=== PATIENT | female | born 1950 | race Caucasian/White ===

== ENCOUNTER 2017-09-06 06:45 | Inpatient (IN) | payer MEDICARE, OTHER ==
[~2017-09-06] VITALS: Ht 162.6 cm; Wt 81.7 kg
--- OUTSIDE RECORDS SUMMARY | ~2017-09-06 | XMS | Clinical Summary ---
Demographics + + + | Address | [address] | | | [place] [address] | + + + | Home Phone | | + + + | Preferred Language | Unknown | + + + | Marital Status | | + + + | Judaism Affiliation | SPI | + + + | Race | White | + + + | Ethnic Group | Not or | + + + Author + + + | Author | [facility] | + + + | Organization | [facility] | + + + | Address | Unknown | + + + | Phone | Unavailable | + + + Support + + + + + | Name | Relationship | Address | Phone | + + + + + | TRAM STANTON | ECON | [place] | | + + + + + | Kristy Ford | ECON | Unknown | | + + + + + Care Team Providers + +------+ + | Care Typesetter Perforator Operator Name | Role | Phone | + +------+ + PP | Unavailable | + +------+ + Source Comments JEREMYSCOTT is fully live on both EpicCare Ambulatory and EpicCare InPatient.[facility] Allergies + + + + + + | Active Allergy | Reactions | Severity | Noted | Comments | | | | | Date | | + + + + + + | Aspirin | Nausea | | 06/07/20 | | | | | | 11 | | + + + + + + | Ciprofloxacin | Rash, Edema | | 05/19/20 | | | | | | 11 | | + + + + + + | Codeine | Pruritus, Nausea and | | 05/19/20 | | | | Vomiting | | 11 | | + + + + + + | Meperidine (Pf) | Pruritus, Nausea and | | 05/19/20 | | | | Vomiting | | 11 | | + + + + + + | Doxycycline | Nausea, Nausea and | | 05/19/20 | | | | Vomiting | | 11 | | + + + + + + | Erythromycin | Nausea and Vomiting | | 05/19/20 | | | | | | 11 | | + + + + + + | Cephalexin | Rash | | 05/19/20 | | | | | | 11 | | + + + + + + | Penicillins | Rash | | 05/19/20 | | | | | | 11 | | + + + + + + | Sulfamethoxazole-Tri | Rash, Edema | | 05/19/20 | | | methoprim | | | 11 | | + + + + + + Current Medications + + + +---------+------+------+-------+ | Prescription | Sig. | Disp. | Refills | Star | End | Statu | | | | | | t | Date | s | | | | | | Date | | | + + + +---------+------+------+-------+ | mometasone | Instill 2 Sprays | | | | | Activ | | (NASONEX) 50 | into each nostril | | | | | e | | mcg/Actuation Nasal | once daily. | | | | | | | [place], Non-Aerosol | | | | | | | + + + +---------+------+------+-------+ | lisinopril 20 mg | Take 1 Dose(s) by | | | | | Activ | | Tab 20 mg, | mouth once daily. | | | | | e | | hydrochlorothiazide | | | | | | | | 25 mg Tab 25 mg | | | | | | | + + + +---------+------+------+-------+ | Nitrofurantoin 50 | Take 100 mg by mouth | | | | | Activ | | mg Oral Capsule | as needed. | | | | | e | + + + +---------+------+------+-------+ | omeprazole 40 mg | Take 40 mg by mouth | | | | | Activ | | Oral Capsule, | once daily. | | | | | e | | Delayed | | | | | | | | Release(E.C.) | | | | | | | + + + +---------+------+------+-------+ | CALCIUM CARBONATE | Take 1,200 Units by | | | | | Activ | | (CALCIUM 600 ORAL) | mouth. | | | | | e | + + + +---------+------+------+-------+ | Cholecalciferol, | Take 5,000 Units by | | | | | Activ | | Vitamin D3, (VITAMIN | mouth every seven | | | | | e | | D) 5,000 unit Oral | days. | | | | | | | Tablet | | | | | | | + + + +---------+------+------+-------+ | omega | Take 3,000 mg by | | | | | Activ | | 8-deq-lzr-fish oil | mouth two times | | | | | e | | (OMEGA 3 FISH OIL) | daily. | | | | | | | 900-1,400 mg Oral | | | | | | | | Capsule, Delayed | | | | | | | | Release(E.C.) | | | | | | | + + + +---------+------+------+-------+ | | Take by mouth. | | | | | Activ | | MULTIVITS-MIN/FA/ | | | | | | e | | TARY NO 19 (MULTIVIT | | | | | | | | & MIN-FA-DIET COMB | | | | | | | | 19 ORAL) | | | | | | | + + + +---------+------+------+-------+ | atorvastatin 40 mg | Take 1 Tab by mouth | 30 Tab | 3 | 12/0 | | Activ | | Oral Tablet | once daily. | | | 2/20 | | e | | | | | | 11 | | | + + + +---------+------+------+-------+ | metoprolol | Take 100 mg by mouth | | | | | Activ | | tartrate 100 mg Oral | two times daily. | | | | | e | | tablet | | | | | | | + + + +---------+------+------+-------+ Active Problems + + + | Problem | Noted Date | + + + | Chest pain | 05/19/2011 | + + + Family History + + +------+ + | Medical History | Relation | Name | Comments | + + +------+ + | Heart Disease | Father | | | + + +------+ + + +------+--------+ + | Relation | Name | Status | Comments | + +------+--------+ + | Father | | (Age | kidney failure | | | | 84) | | + +------+--------+ + Social History + +-------+ +--------+------+ | Tobacco Use | Types | Packs/Day | Years | Date | | | | | Used | | + +-------+ +--------+------+ | Never Smoker | | | | | + +-------+ +--------+------+ + +---+---+---+ | Smokeless Tobacco: | | | | | Never Used | | | | + +---+---+---+ + + +---------+ + | Alcohol Use | Drinks/We | oz/Week | Comments | | | ek | | | + + +---------+ + | No | | | quit drinking socially (2 times a year) two | | | | | years ago | + + +---------+ + + + + | Sex Assigned at | Date Recorded | | | | + + + | Not on file | | + + + Last Filed Vital Signs + + + + | Vital Sign | Reading | Time Taken | + + + + | Blood Pressure | 137/76 | 04/08/2012 8:48 AM PDT | + + + + | Pulse | 85 | 04/08/2012 8:48 AM PDT | + + + + | Temperature | 36.8 C (98.2 F) | 04/08/2012 7:18 AM PDT | + + + + | Respiratory Rate | 18 | 04/08/2012 8:48 AM PDT | + + + + | Oxygen Saturation | 97% | 04/08/2012 8:48 AM PDT | + + + + | Inhaled Oxygen | - | - | | Concentration | | | + + + + | Weight | 82.6 kg (182 lb) | 04/07/2012 1:46 PM PDT | + + + + | Height | 160 cm (5' 3") | 04/04/2012 10:22 AM PDT | + + + + | Body Mass Index | 32.24 | 04/07/2012 1:46 PM PDT | + + + + Plan of Treatment + + + + + | Health Maintenance | Due Date | Last Done | Comments | + + + + + | INFLUENZA VACCINE | | | | | (FLU SHOT) | 7 | | | + + + + + Results Not on filefrom Last 3 Months
--- OUTSIDE RECORDS SUMMARY | ~2017-09-06 | XMS ---
Demographics + + + | Address | [address] | | | [place] [address] | + + + | Preferred Language | Unknown | + + + | Marital Status | Unknown | + + + | Protestant Affiliation | Unknown | + + + | Race | Unknown | + + + | Ethnic Group | Unknown | + + + Author + + + | Author | [facility] | + + + | Organization | [facility] | + + + | Address | [address] | | | [place] [address] | + + + | Phone | | + + + Care Team Providers + + + + | Care Fisher Eel Spear Name | Role | Phone | + + + + Unavailable | Unavailable | + + + + PROBLEMS + + + + + + + + | Type | Condition | ICD9-CM | [id number] | Onset | Condition | SNOMED | | | | Code | Code | Dates | Status | Code | + + + + + + + + | Problem | Current | Z79.52 | | | Active | [id number] | | | use of | | | | | [address]5064 | | | steroid | | | | | | | | medication | | | | | | + + + + + + + + | Problem | Low | E55.9 | | | Active | 93351654 | | | vitamin D | | | | | | | | level | | | | | | + + + + + + + + | Problem | Osteopenia | | M85.80 | | Active | 78724468 | + + + + + + + + | Problem | DJD | M50.30 | | | Active | 58729211 | | | (degenerat | | | | | | | | caitlyn joint | | | | | | | | disease), | | | | | | | | cervical | | | | | | + + + + + + + + | Problem | GERD | | K21.9 | | Active | 871686417 | | | (gastroeso | | | | | | | | phageal | | | | | | | | reflux | | | | | | | | disease) | | | | | | + + + + + + + + | Problem | Lightheade | R42 | | | Active | 841974043 | | | d | | | | | | + + + + + + + + | Problem | Hiatal | | K44.9 | | Active | 53787510 | | | hernia | | | | | | + + + + + + + + | Assessment | Low | E55.9 | | 08 November, | Active | 26845917 | | | vitamin D | | | 2017 | | | | | level | | | | | | + + + + + + + + | Problem | Anxiety | | F41.9 | | Active | 508963493 | | | disorder, | | | | | | | | unspecifie | | | | | | | | d | | | | | | + + + + + + + + | Problem | Anxiety | 300.09 | | | Active | 968550923 | | | about | | | | | | | | health | | | | | | + + + + + + + + | Problem | PAF | I48.0 | | | Active | 36846558 | | | (paroxysma | | | | | | | | l atrial | | | | | | | | fibrillati | | | | | | | | on) | | | | | | + + + + + + + + | Problem | Hypokalemi | | E87.6 | | Active | 84989660 | | | a | | | | | | + + + + + + + + | Problem | ASCVD | I25.10 | | | Active | 63382110 | | | (arteriosc | | | | | | | | lerotic | | | | | | | | cardiovasc | | | | | | | | ular | | | | | | | | disease) | | | | | | + + + + + + + + | Problem | Hypothyroi | | E03.9 | | Active | 41388272 | | | dism | | | | | | + + + + + + + + | Problem | HTN | | I10 | | Active | 99299032 | | | (hypertens | | | | | | | | ion) | | | | | | + + + + + + + + | Problem | H/O neck | Z98.89 | | | Active | | | | surgery | | | | | | + + + + + + + + | Problem | Neck pain | M54.2 | | | Active | 49528499 | + + + + + + + + | Problem | Pseudogout | M11.80 | | | Active | 822020678 | + + + + + + + + | Problem | Fibromyalg | | M79.7 | | Active | 312842871 | | | ia | | | | | | + + + + + + + + | Problem | Left knee | | M25.562 | | Active | 491014178 | | | pain | | | | | | + + + + + + + + | Problem | Hyperchole | | E78.0 | | Active | 21547550 | | | sterolemia | | | | | | + + + + + + + + | Problem | High risk | Z79.899 | | | Active | 401461978 | | | medication | | | | | | | | use | | | | | | + + + + + + + + ALLERGIES + + + + +--------+ | Substance | Reaction | Event Type | Date | Status | + + + + +--------+ | Doxycycline | Unknown | Drug Allergy | November, | Active | | Hyclate | | | | | + + + + +--------+ | Penicillin | Unknown | Drug Allergy | November, | Active | + + + + +--------+ | Codeine | Unknown | Drug Allergy | November, | Active | + + + + +--------+ | Keflex | Unknown | Drug Allergy | November, | Active | + + + + +--------+ | Erythromycin | Unknown | Drug Allergy | November, | Active | + + + + +--------+ | Demerol | Unknown | Drug Allergy | November, | Active | + + + + +--------+ | Bactrim | Unknown | Drug Allergy | November, | Active | + + + + +--------+ | Aspirin | Unknown | Drug Allergy | November, | Active | + + + + +--------+ SOCIAL HISTORY No smoking Hx information available PLAN OF CARE VITAL SIGNS + + + + | Height | 65 in | 2016-11-21 | + + + + | Weight | 175 lbs | 2016-11-21 | + + + + | BMI | 29.12 kg/m2 | 2016-11-21 | + + + + | Temperature | 97.6 degrees Fahrenheit | 2016-11-21 | + + + + | Heart Rate | 58 /min | 2016-11-21 | + + + + | Blood pressure systolic | 132 mm Hg | 2016-11-21 | + + + + | Blood pressure diastolic | 75 mm Hg | 2016-11-21 | + + + + MEDICATIONS + + + + + + + +--------+ | Medicati | Instruct | Dosage | Frequenc | Start | End Date | Duration | Status | | on | ions | | y | Date | | | | + + + + + + + +--------+ | Calcium | | 1 tab | | | | | Active | + + + + + + + +--------+ | Ranitidi | orally | 1 tab | 12h | 11 November, | | 30 | Active | | ne 150mg | twice a | | | 2016 | | | | | | day | | | | | | | + + + + + + + +--------+ | Folic | Orally | 1 tablet | 24h | | | | Active | | Acid 0.4 | Once a | | | | | | | | mg | day | | | | | | | + + + + + + + +--------+ | Magnesiu | Orally | 1 tablet | 24h | | | | Active | | m 100 MG | Once a | | | | | | | | | day | | | | | | | + + + + + + + +--------+ | Vitamin | Orally | 1TABLET | | | | | Active | | D Tab | Once a | | | | | | | | 284[address] | week, | | | | | | | | | monday | | | | | | | + + + + + + + +--------+ | Potassiu | Orally | 1 | 6h | | | | Active | | m | Four | capsule | | | | | | | Chloride | times a | | | | | | | | 10 MEQ | day | | | | | | | + + + + + + + +--------+ | Zoloft | Orally | 1 tablet | 24h | 14 Dec, | | 30 days | Active | | 100 MG | Once a | | | 2015 | | | | | | day | | | | | | | + + + + + + + +--------+ | Nitrosta | | | | | | | Active | | t 0.4 MG | | | | | | | | + + + + + + + +--------+ | Triamter | Orally | 1 tablet | 24h | | | | Active | | renae-HCTZ | Once a | in the | | | | | | | 37.5-25 | day | morning | | | | | | | MG | | | | | | | | + + + + + + + +--------+ | Zyrtec | Orally | 1 tab | 24h | | | | Active | | 10 mg | once a | | | | | | | | | day | | | | | | | + + + + + + + +--------+ | Metoprol | Orally | 1 | 24h | | 12 Paramjit, | | Active | | ol | daily | | | | 2016 | | | | Succinat | | | | | | | | | e 200 mg | | | | | | | | + + + + + + + +--------+ | Complete | | | | | | | Active | | | | | | | | | | | Multivit | | | | | | | | | aguilar/Min | | | | | | | | | eral | | | | | | | | + + + + + + + +--------+ | Pravasta | Orally | TAKE ONE | 24h | | | | Active | | tin | Once a | TABLET | | | | | | | Sodium | day | BY MOUTH | | | | | | | 80 MG | | EVERY | | | | | | | | | DAY | | | | | | + + + + + + + +--------+ | Plavix | Orally | 1 tablet | 24h | | | 90 days | Active | | 75 mg | Once a | | | | | | | | | day | | | | | | | + + + + + + + +--------+ RESULTS No Results PROCEDURES + + + + + | Procedure | Date Ordered | Related Diagnosis | Body Site | + + + + + | Office Visit, Est | November 21, 2016 | | | | Pt., Level 3 | | | | + + + + + | [facility] MED/CURRENT | November 21, 2016 | | | | MED MERGE | | | | + + + + + IMMUNIZATIONS No Known Immunizations"
--- OUTSIDE RECORDS SUMMARY | ~2017-09-06 | XMS ---
Demographics + + + | Address | [address] | | | [place] [address] | + + + | Preferred Language | Unknown | + + + | Marital Status | Unknown | + + + | Anglican Affiliation | Unknown | + + + | Race | Unknown | + + + | Ethnic Group | Unknown | + + + Author + + + | Author | [facility] | + + + | Organization | [facility] | + + + | Address | [address] | | | [place] [address] | + + + | Phone | | + + + Care Team Providers + + + + | Care Cigar Inspector Name | Role | Phone | + + + + Unavailable | Unavailable | + + + + PROBLEMS +---------+ + + +--------+ + + | Type | Condition | ICD9-CM | [id number] | Onset | Condition | SNOMED | | | | Code | Code | Dates | Status | Code | +---------+ + + +--------+ + + | Problem | Current | Z79.52 | | | Active | [id number] | | | use of | | | | | [address] | | | steroid | | | | | | | | medication | | | | | | +---------+ + + +--------+ + + | Problem | Low | E55.9 | | | Active | 41337193 | | | vitamin D | | | | | | | | level | | | | | | +---------+ + + +--------+ + + | Problem | Osteopenia | | M85.80 | | Active | 07301086 | +---------+ + + +--------+ + + | Problem | DJD | M50.30 | | | Active | 77789062 | | | (degenerat | | | | | | | | caitlyn joint | | | | | | | | disease), | | | | | | | | cervical | | | | | | +---------+ + + +--------+ + + | Problem | GERD | | K21.9 | | Active | 994596941 | | | (gastroeso | | | | | | | | phageal | | | | | | | | reflux | | | | | | | | disease) | | | | | | +---------+ + + +--------+ + + | Problem | Lightheade | R42 | | | Active | 949104809 | | | d | | | | | | +---------+ + + +--------+ + + | Problem | Hiatal | | K44.9 | | Active | 46094672 | | | hernia | | | | | | +---------+ + + +--------+ + + | Problem | Anxiety | | F41.9 | | Active | 937842716 | | | disorder, | | | | | | | | unspecifie | | | | | | | | d | | | | | | +---------+ + + +--------+ + + | Problem | Anxiety | 300.09 | | | Active | 565002570 | | | about | | | | | | | | health | | | | | | +---------+ + + +--------+ + + | Problem | PAF | I48.0 | | | Active | 36006272 | | | (paroxysma | | | | | | | | l atrial | | | | | | | | fibrillati | | | | | | | | on) | | | | | | +---------+ + + +--------+ + + | Problem | Hypokalemi | | E87.6 | | Active | 69386745 | | | a | | | | | | +---------+ + + +--------+ + + | Problem | ASCVD | I25.10 | | | Active | 86081424 | | | (arteriosc | | | | | | | | lerotic | | | | | | | | cardiovasc | | | | | | | | ular | | | | | | | | disease) | | | | | | +---------+ + + +--------+ + + | Problem | Hypothyroi | | E03.9 | | Active | 36064397 | | | dism | | | | | | +---------+ + + +--------+ + + | Problem | HTN | | I10 | | Active | 19534407 | | | (hypertens | | | | | | | | ion) | | | | | | +---------+ + + +--------+ + + | Problem | H/O neck | Z98.89 | | | Active | | | | surgery | | | | | | +---------+ + + +--------+ + + | Problem | Neck pain | M54.2 | | | Active | 00612135 | +---------+ + + +--------+ + + | Problem | Pseudogout | M11.80 | | | Active | 954061042 | +---------+ + + +--------+ + + | Problem | Fibromyalg | | M79.7 | | Active | 655514393 | | | ia | | | | | | +---------+ + + +--------+ + + | Problem | Left knee | | M25.562 | | Active | 498884338 | | | pain | | | | | | +---------+ + + +--------+ + + | Problem | Hyperchole | | E78.0 | | Active | 42721943 | | | sterolemia | | | | | | +---------+ + + +--------+ + + | Problem | High risk | Z79.899 | | | Active | 057567079 | | | medication | | | | | | | | use | | | | | | +---------+ + + +--------+ + + ALLERGIES + + + + +--------+ | Substance | Reaction | Event Type | Date | Status | + + + + +--------+ | Doxycycline | Unknown | Drug Allergy | Feb, | Active | | Hyclate | | | | | + + + + +--------+ | Penicillin | Unknown | Drug Allergy | Feb, | Active | + + + + +--------+ | Codeine | Unknown | Drug Allergy | Feb, | Active | + + + + +--------+ | Keflex | Unknown | Drug Allergy | Feb, | Active | + + + + +--------+ | Erythromycin | Unknown | Drug Allergy | Feb, | Active | + + + + +--------+ | Demerol | Unknown | Drug Allergy | Feb, | Active | + + + + +--------+ | Bactrim | Unknown | Drug Allergy | Feb, | Active | + + + + +--------+ | Aspirin | Unknown | Drug Allergy | Feb, | Active | + + + + +--------+ SOCIAL HISTORY No smoking Hx information available PLAN OF CARE + +---------+ | Activity | Details | + +---------+ +---+ | | +---+ + + + | Follow Up | 6 Weeks Reason:null | + + + VITAL SIGNS + + + + | Height | 65 in | 2017-03-02 | + + + + | Weight | 175.7 lbs | 2017-03-02 | + + + + | BMI | 29.23 kg/m2 | 2017-03-02 | + + + + | Temperature | 97.9 degrees Fahrenheit | 2017-03-02 | + + + + | Heart Rate | 59 /min | 2017-03-02 | + + + + | Blood pressure systolic | 115 mm Hg | 2017-03-02 | + + + + | Blood pressure diastolic | 56 mm Hg | 2017-03-02 | + + + + MEDICATIONS + [...] 150mg | twice a | | | 2015 | | [...] + + + + + +--------+ | Sertrali | Orally | 1 tablet | 24h | Feb, | | 30 | Active | | ne HCl | Once a | | | 2016 | | day(s) | | | 150 mg | day | | | | | | | + + + + + + + +--------+ | Magnesiu | Orally | 1 tablet | 24h | | | | Active | | m 250 MG | Once a | | | | | | | | | day | | | | | | | + + + + + + + +--------+ | Zinc 100 | Orally | 1 tablet | 24h | | | | Active | | MG | Once a | | | | | | | | | day | | | | | | | + + + + + + + +--------+ | Sertalin | | | | | | | Active | | e 100 mg | | | | | | [...] + + + +--------+ | Potassiu | Intraven | 1 | 6h | | | | Active | | m | ous Four | capsule | | | | | | | Chloride | times a | | | | | | | | 2 | day | | | | | | | | MEQ/ML | | | | | | | | + + + + + + + +--------+ | Metoprol | | TAKE ONE | | | | 30 | Active | | ol | | TABLET | | | | | | | Succinat | | BY MOUTH | | | | | | | e ER 200 | | EVERY | | | | | | | MG | | DAY | | | | [...] + + + + + +--------+ | Levothyr | Orally | 1 tablet | 24h | | | | Active | | oxine | Once a | every | | | | | | | Sodium | day | morning | | | | | | | 77 | | on an | | | | | | | | | empty | | | | | | | | | stomach | | | | | | + + + + + + + +--------+ RESULTS + +--------+ + + | Name | Result | Date | Reference Range | + +--------+ + + | Lipid Panel | | 2017-03-02 | | + +--------+ + + | Cholesterol, Total | | | | + +--------+ + + | Triglycerides | | | | + +--------+ + + | HDL Cholesterol | | | | + +--------+ + + | VLDL Cholesterol | | | | | Lamin | | | | + +--------+ + + | LDL Cholesterol | | | | | Calc | | | | + +--------+ + + | Basic Metabolic | | 2017-03-02 | | | Panel (8) | | | | + +--------+ + + | Calcium, Serum | | | | + +--------+ + + | Glucose, Serum | | | | + +--------+ + + | BUN | | | | + +--------+ + + | Potassium, Serum | | | | + +--------+ + + | Sodium, Serum | | | | + +--------+ + + | Chloride, Serum | | | | + +--------+ + + | Creatinine, Serum | | | | + +--------+ + + | Carbon Dioxide, | | | | | Total | | | | + +--------+ + + | BUN/Creatinine | | | | | Ratio | | | | + +--------+ + + | Urinalysis, | | 2017-03-02 | | | w/Culture Reflex | | | | + +--------+ + + | Collection Type | | | | + +--------+ + + | Color | | | | + +--------+ + + | Clarity | | | | + +--------+ + + | Specific Dennison | | | | + +--------+ + + | PH | | | | + +--------+ + + | Protein | | | | + +--------+ + + | Glucose | | | | + +--------+ + + | Ketone | | | | + +--------+ + + | Bilirubin | | | | + +--------+ + + | Blood/HGB | | | | + +--------+ + + | Nitrite | | | | + +--------+ + + | Urobilinogen | | | | + +--------+ + + | Leuk Esterase | | | | + +--------+ + + | Casts | | | | + +--------+ + + | WBC'S | | | | + +--------+ + + | RBC'S | | | | + +--------+ + + | Epithelial | | | | + +--------+ + + | Crystals | | | | + +--------+ + + | Bacteria | | | | + +--------+ + + | CBC with | | 2017-03-02 | | | Differential Count | | | | + +--------+ + + PROCEDURES + + + + + | Procedure | Date Ordered | Related Diagnosis | Body Site | + + + + + | Office Visit, Est | Mar 02, 2017 | | | | Pt., Level 4 | | | | + + + + + | [facility] MED/CURRENT | Mar 02, 2017 | | | | MED MERGE | | | | + + + + + IMMUNIZATIONS No Known Immunizations"
[~2017-09-06 06:45] MED LIST: ALPRAZOLAM ER0.5 MG PO; AZITHROMYCIN250 MG PO; B-12250 MCG; CALCIUM + VITA1 EACH PO; CLONIDINE HCL0.1 MG PO; FOLIC ACID0.4 MG PO; LEVOTHYROXINE75 MCG PO; LIPITOR40 MG PO; MAGNESIUM100 MG PO; MULTI VITAMIN1 EACH PO; NASONEX17 GM NS; NITROSTAT0.4 MG SL; OMEGA-31000 MG; OMEPRAZOLE40 MG PO; PLAVIX75 MG PO; POTASSIUM CHLO10 ME1 PO; PRAVACHOL80 MG PO; PREDNISONE20 MG PO; RANITIDINE HCL150 M1 PO; TOPROL XL100 MG PO; TRIAMTERENE-HC1 EAC3 PO; VITAMIN D1000 UNIT; VITAMIN D1000 UNIT PO; ZYRTEC10 M3 PO
[2017-09-12] MEDS ORDERED: ZOLOFT100 MG PO (13:41)
--- NOTE | 2017-09-20 09:36 | NUR ---
09/20/17 0936 Merlyn Blackburn 0904 PT ARRIVED IN PACU WIDE AWAKE WITH NO C/O'S. SPINAL AT L-2. HUGHES IN PLACE. 0930 SIPPING ON WATER.
--- NOTE | 2017-09-20 11:01 | NUR ---
SPINAL RESOLVED AT THIS TIME. PATIENT VITALS TAKEN AND PATIENT HAS NO C/O PAIN AT THIS TIME. NEW BAG OF IV FLUID HUNG. CALL LIGHT WITHIN REACH.
--- NOTE | 2017-09-20 13:52 | NUR ---
SURGICAL VITALS DONE AT THIS TIME. PATIENT HAS NO C/O PAIN OR NEEDS AT THIS TIME. SHE ATE 100% OF HER LUNCH/CLEAR LIQUID TRAY AND URINE OUTPUT IS GOOD.
--- NOTE | 2017-09-20 14:06 | NUR ---
PATIENT LYING IN BED WATCHING TV. VITALS DONE, FRESH ICE WATER, CALL LIGHT IN REACH.
--- NOTE | 2017-09-20 14:50 | NUR ---
PATIENT STATES THAT SHE IS COMFTORABLE AT THIS TIME, ONLY COMPLAINS OF PAIN IN HER NECK WHICH IS CHRONIC PAIN. PATIENT PLAYING A GAME ON HER JENNIFER.
--- NOTE | 2017-09-20 16:02 | NUR ---
PATIENT REFUSED TO SIT UP AT THE SIDE OF THE BED AT THIS TIME. PATIENT REQUESTS PAIN MEDICATION AT THIS TIME FOR CHRONIC PAIN IN HER NECK 02/23.
--- NOTE | 2017-09-20 16:45 | NUR ---
DOCTOR LEON CALLED AND UPDATED ON PATIENT HAVING CHEST PAIN, VITALS, AND MORPHINE GIVEN IV WITH MAALOX. NITRO SUBLINGUAL ORDERED AT THIS TIME.
--- NOTE | 2017-09-20 16:50 | NUR ---
NITRO GIVEN AT THIS TIME WITH SOME RELEIF AT THIS TIME FROM CONSTANT PAIN, EKG BEING DONE BY RT
--- NOTE | 2017-09-20 16:57 | NUR ---
PATIENT'S CHEST PAIN NOW DOWN TO A 2/10 SCD'S REMOVED DUE TO BEING TOO WARM, VITALS TAKEN.
--- NOTE | 2017-09-20 18:48 | NUR ---
PATIENT WAS ADMITTED FROM SURGERY TODAY AFTER A RECTOCELE REPAIR. SHE WAS ON RA UNTIL RECEIVING IV PAIN MEDICATION AT 1600 THIS AFTERNOON. SHE IS NOW CURRENTLY ON OXYGEN AT 1L PER NC. PATIENT HAD C/O CHEST PAIN 10/10 THAT WAS RELEIVED WITH NITRO SUBLINGUAL. EKG WAS DONE AND WAS NORMAL. PATIENT HAS A HUGHES WITH ADAQUET URINE OUTPUT. VAGINAL PACKING IS IN PLACE.
--- NOTE | 2017-09-20 19:10 | NUR ---
RECEIVED REPORT FROM DAY SHIFT RN. PATIENT IS RESTING IN BED ON 1L VIA NC. PULSE OX IN PLACE AND READINGS ARE WNL. PATIENT DENIES PAIN. NO NEEDS NOTED. CALL LIGHT IN REACH.
--- NOTE | 2017-09-20 21:00 | NUR ---
PT IN BED AWAKE. TOOK PT VITALS AND I AND O
--- NOTE | 2017-09-20 21:30 | NUR ---
PATIENT ASSESMENT COMPLETED. PATIENT IS RESTING IN BED WATCHING TV. PATIENT IS ON RA AT THIS TIME. PULSE OX READINGS ARE WNL. PATIENT HAS HUGHES IN PLACE AND URINE OUPUT IS QS. PATIENT RATES PAIN AT A 7/10 IN HER "BOTTOM AREA". PATIENTS EVENING MEDICATIONS GIVEN PER ORDER. PATIENT REPOSTIIONED IN BED. PATIENT DENIES ANY NEEDS AT THIS TIME. CALL LIGHT IN REACH.
--- NOTE | 2017-09-21 00:03 | NUR ---
PATIENT GIVEN SHCEDULED PAIN MEDICATION. PATIENT RATES PAIN AT A 7/10. PATIENT CONTINUES TO STRUGGLE WITH SLEEP. NO FURTHER NEEDS NOTED. CALL LIGHT IN REACH.
--- NOTE | 2017-09-21 00:13 | NUR ---
PATIENT IS RESTING IN BED WITH EYES CLOSED. PATIENT REMAINS ON RA. PULSE OX READINGS ARE WNL. CALL LIGHT IN REACH.
--- NOTE | 2017-09-21 01:43 | NUR ---
PATIENT AWOKEN WHEN THE ROOM WAS ENTERED. PATIENT DENIES ANY PAIN. PATIENT REMAINS ON RA AND PULSE OX IN PLACE. PULSE OX READINGS ARE WNL. PATIENT DENIES ANY NEEDS AT THIS TIME. CALL LIGHT IN REACH.
--- NOTE | 2017-09-21 01:43 | NUR ---
PT SLEEPING WILL CHECK BACK ON LATER.
--- NOTE | 2017-09-21 03:17 | NUR ---
PATIENT IS RESTING IN BED. PATIENT PLACED ON 1L VIA NC. PATIENTS OXYGEN SATURATION IS ON 95%. PULSE OX IN PLACE. PATIENT DENIES ANY PAIN. NO NEEDS NOTED CALL LIGHT IN REACH.
--- NOTE | 2017-09-21 05:09 | NUR ---
PATIENT AWOKEN WHEN THE ROOM WAS ENTERED. PATIENT DENIES ANY PAIN. PATIENT TITRATED DOWN TO .5L VIA NC. PATIENTS PULSE OX READINGS ARE WNL. NO NEEDS NOTED CALL LIGHT IN REACH.
--- NOTE | 2017-09-21 05:31 | NUR ---
PATIENT RESTED WELL THROUGHOUT THE SHIFT. PATIENT RECEIVED X1 PRN PAIN MEDICATION. PATIENT HAS PULSE OX IN PLACE. PATIENT IS ON A REG DIET AND IS TOLERATING WELL, NO NAUSEA NOTED. PATIENT HAS SCDS IN USE. PATIENT HAS HUGHES IN PLACE. PATIENT HAS NOT BEEN OUT OF BED AT THIS TIME. PATIENT IS AAO X3 AND USES CALL LIGHT APPROPRIATELY.
--- NOTE | 2017-09-21 05:52 | NUR ---
PT STATED SHE WAS HAVING PAIN OF 7 OF 10. LET HER NURSE MIGNON KNOW
--- NOTE | 2017-09-21 06:00 | NUR ---
PATIENT RATED PAIN IN HER "BOTTOM AREA" AT A 7/10. PATIENT GIVEN PRN PAIN MEDICATION PER ORDER. PATIENT IS ON RA. PATIENT DENIES ANY FURTHER NEEDS AT THIS TIME. CALL LIGHT IN REACH.
--- NOTE | 2017-09-21 06:38 | NUR ---
PATIENT WAS ABLE TO AMBULATE IN THE HALLWAY. PATIENT TOLERATED AMBUALTION WELL A SBA. PATIENTS HUGHES REMOVED PER ORDER. PATIENTS VICKIE PAD HAD A SMALL AMOUNT OF BROWN DRINAGE ON IT. PATIENT PROVIDED WITH NEW VICKIE PAD. PATIENT IS BACK IN BED RESTING NO FURTHER NEEDS NOTED. CALL LIGHT IN [facility].
--- NOTE | 2017-09-21 07:15 | EKG ---
[facility] [address] [facility] [place], [place] [address] Signed Normal sinus rhythm Normal ECG When compared with ECG of 12-SEP-2017 13:50, Nonspecific T wave abnormality now evident in Inferior leads Confirmed by PATRICIA DARBY MD ([id number]) on 09/21/2017 7:15:43 AM Electronically Signed By: PATRICIA DARBY MD 09/21/17 0715 PATIENT NAME: JASEN STANTON ARMIN Electrocardiogram DATE OF : 46 PHYSICIAN: PATRICIA DARBY MD REPORT #: [id number] REPORT IS CONFIDENTIAL AND NOT TO BE RELEASED WITHOUT AUTHORIZATION
--- NOTE | 2017-09-21 07:40 | NUR ---
BEDSIDE REPORT RECEIVED FROM MIGNON. ASSUMING PATIENT CARE AT THIS TIME. PATIENT AWAKE IN BED, REPORTS NAUSEA. PATIENT MEDICATED FOR NAUSEA. SAUL WAS D/Cd THIS AM PER STEAM TUNNEL FEEDER. PATIENT EDUCATED ABOUT CALLING WHEN NEEDED TO USE THE BATHROOM. IV SITE PATENT AND FLUID INFUSING WELL. CALL LIGHT IN REACH.
--- NOTE | 2017-09-21 08:34 | NUR ---
DR LEON WAS IN TO REASSESS PATIENT. NEW ORDER TO D/C FLUID, AND SHOWER. PATIENT RESTING IN BED AT THIS TIME EATING BREAKFAST. STATED THAT HER NAUSEA IS BETTER AFTER STARTED EATING. WILL CONTINUE TO MONITOR
[2017-09-21] MEDS ORDERED: METOPROLOL SUC200 MG PO (08:55)
--- NOTE | 2017-09-21 10:35 | NUR ---
PATIENT WAS UP TO BATHROOM, VOIDED 250ML AND POST VOID RESIDUAL WAS 183ML. PATIENT EDUCATED ABOUT AMBULATION. RESTING IN BED FOR NOW. CALL LIGHT IN REACH.
--- NOTE | 2017-09-21 10:42 | NUR ---
2 PERSON ASSIST TO BATHROOM. AM CARE DONE BUT REFUSED SHOWER. VITALS AND I/O'S DONE. BLADDER SCAN BY FRANCESCO KING. CALL LIGHT IN REACH. NO OTHER NEEDS.
[2017-09-21] MEDS ORDERED: K-TAB ER20 MEQ PO (11:10)
[2017-09-21] MEDS ORDERED: TRIAMTERENE-HC1 EAC1 PO (11:12)
[2017-09-21] MEDS ORDERED: ZOLOFT50 MG PO (11:12)
[2017-09-21] MEDS ORDERED: CALCIUM 600 +1 EACH PO (11:13)
--- NOTE | 2017-09-21 11:13 | NUR ---
TOOK A VICKIE BOTTLE IN FOR PT. TOLD HER OUR GOAL OF WALKING TO BATHROOM AGAIN BY NOON, SHE AGREED TO TRY. CALL LIGHT IN REACH.
--- NOTE | 2017-09-21 11:14 | NUR ---
MED REC COMPLETE
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
--- NOTE | 2017-09-21 13:20 | NUR ---
PATIENT WAS UP TO BATHROOM VOIDED 100ML WITH A POST RESIDUAL OF ABOUTY 269ML. DR LEON WAS IN TO CHECK ON PATIENT.
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
--- NOTE | 2017-09-21 14:23 | NUR ---
PATIENT UP TO BATHROOM, VOIDED 50ML AND POST RESIDUAL IS 173ML. PATIENT UP WALKING IN THE [address] WAY, TOLERATED WELL.
--- NOTE | 2017-09-21 14:48 | NUR ---
PT USED BATHROOM, VOIDED, WAS BLADDER SCANNED, WENT FOR A WALK, AND IS NOW BACK IN BED RESTING SAFELY WITH CALL LIGHT IN REACH. PT DID NOT NEED ANYTHING ELSE AT THE MOMENT
--- NOTE | 2017-09-21 15:36 | NUR ---
PATIENT WAS AMBULATING IN THE HALLWAY,. TOLERATED WELL. THEN TO BATHROOM, VOIDED 250ML WITH 100ML POST VOID RESIDUAL. EVENING MED ADMINISTERED. PATIENT REPORTS MINIMAL PAIN. MINIMAL BLEEDING. RESTING IN BED AT THIS TIME. WILL CONTINUE TO MONITOR. CALL LIGHT IN REACH.
--- NOTE | 2017-09-21 16:26 | NUR ---
PATIENT UP WALKING IN THE HALLWAY. TOLERATED. REPORTS MINIMAL PAIN. NO APPARENT DISTRESS.
--- NOTE | 2017-09-21 16:46 | NUR ---
PT VOIDED 250ML. BLADDER SCAN DONE WITH ASSISTANCE FROM LIZETT HUFF, 191 RESIDUAL IN BLADDER. RN NOTIFIED. PT RELAXING IN BED WITH CALL LIGHT WITHIN REACH. INFORMED TO CALL IF SHE NEEDS ANYTHING.
--- NOTE | 2017-09-21 17:16 | NUR ---
PATIENT RESTING IN BED, DENIES NAUSEA. REPORTS HEADACHE AND PAIN IN THE BUTTOM AREA. PATIENT WAS MEDICATED. SITTING IN BED EATING.
--- NOTE | 2017-09-21 17:47 | NUR ---
PATIENT HAD AN UNEVENTFUL DAY. HAD VOIDED Q/S. PATIENT IS S/L NOW. TAKING PO WELL. HAD ZOFRAN ONCE THIS AM AND PAIN MED ONCE THIS PM. PATIENT HAD BEEN UP AMBULATING IN THE HALLWAY 4 TIMES TODAY. MINIMAL VAGINAL DISCHARGE. BLADDER SCAN FOR POST RESIDUAL. ATE MOST OF HER FOOD. NO BM. MAY D/C TOMORROW.
--- NOTE | 2017-09-21 19:30 | NUR ---
BEDSIDE REPORT RECEIVED FROM FRANCESCO KING. PT AWAKE IN BED, STATES PAIN IS 5/10 AT THIS TIME. IV SALINE LOCKED. PT INSTRUCTED TO USE CALL LIGHT PRIOR TO GETTING UP. NO REQUESTS AT THIS TIME, TRAY TABLE CLEARED.
--- NOTE | 2017-09-21 19:54 | NUR ---
ROUNDED CHARGE. PATIENT IS RESTING IN BED WATCHING TV. PATIENT DENIES ANY PAIN AT THIS TIME. PATIENT DENIES ANY COMMENTS, QUESTIONS, OR CONCERNS. NO NEEDS NOTED. CALL LIGHT IN REACH.
--- NOTE | 2017-09-21 21:07 | NUR ---
PT ASSISTED TO RESTROOM FOR 400 ML VOID W FWW AND SBA. ORAL CARE COMPLETED. POST VOID RESIDUAL 218. PT RATES PAIN IS 5/10 IN BUTTOCKS, BLADDER. PT DENIES NAUSEA. STATES PASSING GAS, BOWEL TONES ACTIVE. ABDOMEN SOFT, TENDER IN LLQ WITH PALPATION. PT HAS NO ADDL REQUESTS AT THIS TIME. CALL LIGHT IN REACH. AWAKE WATCHING TV.
--- NOTE | 2017-09-21 23:00 | NUR ---
CALL LIGHT ANSWERED, PT ASSISTED TO RESTROOM WITH SBA FWW FOR VOID. INSTRUCTED TO USE CALL LIGHT WHEN FINISHED. GAIT STEADY.
--- NOTE | 2017-09-21 23:10 | NUR ---
ASSISTED PATIENT BACK TO BED AFTER USING THE BATHROOM. PATIENT IS SBA W/FWW. BLADDER SCANNED FOR 100MLS, DOCUMENTED ON SHEET. PATIENT BACK IN BED. SCDS ON. NO OTHER NEEDS. CALL LIGHT IN REACH.
--- NOTE | 2017-09-22 00:10 | NUR ---
PT SLEEPING AT THIS TIME, EYES CLOSED, BREATHING NON LABORED. LIGHTS OFF IN ROOM.
--- NOTE | 2017-09-22 01:36 | NUR ---
HELPED PT TO THE BATHROOM AND BACK WITH HER WALKER. CHANGED PTS PILLOW CASE DUE TO IT BEING WET FROM HER SWEATING. BLADDER SCAN DONE AND CHARTED. BEDSIDE TABLE AND CALL LIGHT WITHIN REACH. PT NEEDS NOTHING ELSE AT THIS TIME.
--- NOTE | 2017-09-22 02:29 | NUR ---
CHECKED ON PT, PT DROWSY AT THIS TIME, NO REQUESTS, LIGHTS OFF IN ROOM. CALL LIGHT IN REACH.
--- NOTE | 2017-09-22 04:02 | NUR ---
IN PT ROOM TO CHECK ON PT, PT SLEEPING AT THIS TIME, EYES CLOSED, VISIBLE CHEST RISE, BREATHING NON-LABORED.
--- NOTE | 2017-09-22 04:40 | NUR ---
CALL LIGHT ANSWERED, PT NAUSEOUS, ADMINISTERED PO ZOFRAN AT THIS TIME. PT REQUESTING TO USE RESTROOM, ASSISTED WITH SBA TO RESTROOM FOR VOID. PT INSTRUCTED TO USE CALL LIGHT WHEN FINISHED.
--- NOTE | 2017-09-22 04:58 | NUR ---
ANSWERED PT CALL LIGHT, ASSISTED PT OUT OF RESTROOM TO BED. POST VOID RESIDUAL 150 ML AT THIS TIME, PT VOIDED 300 MLS. PT DENIES NAUSEA AT THIS TIME, NO EMESIS. SMALL AMOUNT OF BLOOD ON VICKIE PAD, CHANGED. PT RATES PAIN 3/10, STATES, "MUCH BETTER TODAY". PT GIVEN CRACKERS REQUESTED, CALL LIGHT, PERSONAL SUPPLIES IN REACH, SCDS ON.
--- NOTE | 2017-09-22 05:30 | NUR ---
SBA W FWW TO RESTROOM FOR VOIDS, BLADDER SCANNING POST VOID RESIDUALS. PAIN WELL MANAGED WITH IBUPROFEN AND PRN NORCO. RECEIVED PRN ZOFRAN PO X 1 FOR NAUSEA, NO EMESIS. PT ALERT AND ORIENTED X 3. USING CALL LIGHT APPROPRIATELY. IV SALINE LOCKED WNL.
--- NOTE | 2017-09-22 05:56 | NUR ---
CALL LIGHT ANSWERED, PT C/O NAUSEA, PRN REGLAN 5 MG IV ADMINISTERED. PT HAS NO EMESIS. GIVEN ICE WATER. WASH CLOTH. NO ADDITIONAL REQUESTS CALL LIGHT IN REACH.
--- NOTE | 2017-09-22 07:24 | NUR ---
BEDSIDE REPORT RECEIVED FROM GREER. PATIENT AWAKE IN BED. REPORTS MINIMAL PAIN AND MILD NAUSEA. PATIENT WAS MEDICATED FOR NAUSEA. PATIENT WAS ASSISTED TO BATHROOM THEN BACK TO BED. PATIENT VOIDED 300ML AND HAD 76ML POST RESIDUAL. BREAKFAST ORDERED. PATIENT RESTING IN BED AT THIS TIME.
--- NOTE | 2017-09-22 08:40 | NUR ---
DR LEON WAS IN TO RE-EVALUATE PATIENT. PATIENT HAD 50ML OF EMESIS. STATED THAT SHE FELT BETTER AFTER, VOMITTING. PATIENT HAD VERY TINY STOOL THIS AM. PATIENT REPORTS MINIMAL PAIN. SHIFT ASSESSMENT DONE. PATIENT DENIES PAIN IN THE CALVES. MILD LOWER ABD PRESSURE WHILE BLADDER SCANNING PATIENT. IV SITE PATENT. D/C HOME TODAY PER DR LEON.
[2017-09-22] MEDS ORDERED: NORCO 5-325 TA1 EACH PO (08:58)
[2017-09-22] MEDS ORDERED: IBUPROFEN800 MG PO (08:59)
[2017-09-22] MEDS ORDERED: KONDREMUL2.5 ML/5 M PO (09:04)
[2017-09-22] MEDS ORDERED: SENOKOT-S TABL1 EACH PO (09:06)
[2017-09-22] MEDS ORDERED: REGLAN10 MG PO (09:07)
--- NOTE | 2017-10-03 08:26 | OR ---
[facility] [address] [place] [address] Signed DATE OF OPERATION: 09/20/2017 SURGEON: Lexie Paredes MD [facility] SUPERVISOR: Dr. Edwards. PREOPERATIVE DIAGNOSIS: Recurrent rectocele. POSTOPERATIVE DIAGNOSIS: Recurrent rectocele. PROCEDURE: Rectocele repair with dermis reinforcement. ANESTHESIA: Spinal with IV sedation. ESTIMATED BLOOD LOSS: 50 mL. DRAINS: Watson catheter. PACKS: Vaginal. INDICATIONS AND FINDINGS: The patient is a 67-year-old female, 6, para 2, AB 4, who has undergone prior TAHBSO for benign indications, as well as a rectocele repair, who has had recurrent rectocele, which has been more symptomatic. She now desires correction of this. At the time of surgery, she had evidence of scarring at the lower aspect of the vagina, but a grade 2 rectocele at the upper aspect. There was no enterocele. There was no significant cystocele. DESCRIPTION OF PROCEDURE: The patient was prepped and draped in the dorsal lithotomy position. A triangle of tissue was removed from the perineal body with a knife. The vaginal mucosa was then undermined, incised in the midline with Metzenbaum scissors. This was carried out to Electronically Signed By: LEXIE PAREDES MD 10/03/17 0826 PATIENT NAME: JASEN STANTON OPERATIVE REPORT DATE OF : 46 REPORT #: [id number] PHYSICIAN: LEXIE PAREDES MD PCP: GAVINO MENG MD REPORT IS CONFIDENTIAL AND NOT TO BE RELEASED WITHOUT AUTHORIZATION [facility] [address] [place], [place] [address] Signed the apex of the vagina. The vaginal mucosa was from the underlying tissue with a combination of blunt and sharp dissection. This was carried out superior and laterally to the ischial spines. Following this, the [employer] device was used to deploy 0 Vicryl suture into the sacrospinous ligament for use later. These were placed slightly medial and caudal to the spine. Following this, the defect in the perirectal fascial type tissue was repaired with interrupted sutures of 0 Vicryl. This was primarily a defect in the upper 3rd of the vagina. Following this, a rectal examination was done, which confirmed good reduction of the defect and no sutures compromising the rectal lumen. The dermis graft was then trimmed into a [id number] shape. It was sutured at the arms to the sutures at the spines. This was tied down with appropriate tension across the top of the vagina. The graft was then tacked into place with interrupted sutures of 2-0 Vicryl. Following this, the rectal examination was repeated and there was no evidence of sutures compromising the rectal lumen. Following this, FloSeal was injected around the sacrospinous ligaments on each side to aid in hemostasis. The vaginal mucosa was then trimmed a significant amount because of redundancy. The vaginal mucosa was closed with a running suture of 2-0 Vicryl from the apex of the vagina to the hymenal ring. Several additional sutures were required near the apex for control of bleeding. The posterior fourchette was recreated with a running suture of 2-0 Vicryl. The perineal body was rebuilt with interrupted sutures of the 2-0 Vicryl. The perineal skin was closed with a subcuticular suture of 2-0 Vicryl. Following this, the vagina was inspected. There was good hemostasis noted. There was no bleeding. There was good length and caliber. Following this, the vaginal canal was packed with Premarin coated gauze. All sponge and needle counts were correct. She tolerated procedure well and was taken to the recovery room in good condition. MD LILY Munoz/MODL /[id number] cc: Dr. Cari Edwards Copies: Electronically Signed By: LEXIE PAREDES MD 10/03/17 0826 PATIENT NAME: JASEN STANTON OPERATIVE REPORT DATE OF : 46 REPORT #: [id number] PHYSICIAN: LEXIE PAREDES MD PCP: GAVINO MENG MD REPORT IS CONFIDENTIAL AND NOT TO BE RELEASED WITHOUT AUTHORIZATION [address] [address] Signed ~ Electronically Signed By: LEXIE PAREDES MD 10/03/17 0826 PATIENT NAME: JASEN STANTON OPERATIVE REPORT DATE OF : 46 REPORT #: [id number] PHYSICIAN: LEXIE PAREDES MD PCP: GAVINO MENG MD REPORT IS CONFIDENTIAL AND NOT TO BE RELEASED WITHOUT AUTHORIZATION
== END 2017-09-22 10:45 | disposition home or self-care (01) | DRG 748 ==
LOC: MS 09-20 05:55 → DSVR 09-20 05:55 → MS 09-20 06:45
PROVIDERS: ADMIT Obstetrics & Gynecology
PROC: 0JUC0JZ Supplement of Pelvic Region Subcutaneous Tissue and Fascia with Synthetic Substitute, Open Approach (ICD-10-PCS; principal; 2017-09-20 06:45)
DX: N81.6 Rectocele (principal); R07.9 Chest pain, unspecified; K21.9 Gastro-esophageal reflux disease without esophagitis; K44.9 Diaphragmatic hernia without obstruction or gangrene
CPT/HCPCS: 00942; 36415; 80048; 85027; 93005; 93010; C1762; C2631; J1170; J1644; J2250; J2270; J2274; J2405; J2704; J2765; J3010; J3490; J7120